=== PATIENT | female | born 1990 | race Two or more races ===

== ENCOUNTER 2021-03-31 23:13 | Emergency (ER) | payer OTHER ==
[~2021-03-31] VITALS: Ht 144.8 cm; Wt 48.0 kg
[2021-04-01 00:25] LABS: ALANINE AMINOTRANSFERASE 32 U/L (12-78); ALBUMIN 3.4 g/dL (3.4-5.0); ANION GAP 8 mmol/L (5-15); CALCIUM 8.8 mg/dL (8.5-10.1); CHLORIDE 106 mmol/L (98-107); CREATININE 0.54 mg/dL (0.55-1.02)
--- NOTE | 2021-04-01 00:26 | NUR ---
PT AMBULATORY TO THE BR FOR A URINE SAMPLE
[2021-04-01 00:30] LABS: BASOPHILS % (AUTO) 0 % (0-1); EOSINOPHILS % (AUTO) 1 % (1-7); LYMPHOCYTES % (AUTO) 21 % (22-44); MEAN CORPUSCULAR HGB CONC 34.4 g/dL (32.4-35.8); MEAN PLATELET VOLUME 7.6 fL (7.4-10.4); MONOCYTES % (AUTO) 6 % (2-9); NEUTROPHILS % (AUTO) 72 % (42-75); PLATELET COUNT 262 x10^3/uL (130-400); RED BLOOD COUNT 4.36 x10^6/uL (3.82-5.3)
[2021-04-01 00:34] VITALS: BP 111/44
[2021-04-01 00:42] LABS: ALKALINE PHOSPHATASE 45 U/L (45-117); BILIRUBIN,TOTAL 0.4 mg/dL (0.2-1.0); TOTAL PROTEIN 7.6 g/dL (6.4-8.2)
[2021-04-01 00:46] LABS: MICROSCOPIC INDICATED
[2021-04-01] MEDS ORDERED: metroNIDAZOLE 500 MG TABLET PO ONE (01:30)
--- NOTE | 2021-04-01 01:30 | NUR ---
dc HOME WITH INSTRUCT, PT VERBALIZES UNDERSTANDING. TO RETURN TO ER IF WORSE OR CONCERNS.
== END 2021-04-01 01:37 | disposition home or self-care (01) ==
LOC: ED 04-01 01:00
DX: O20.0 Threatened abortion (principal); Z3A.01 Less than 8 weeks gestation of pregnancy
CPT/HCPCS: 36415; 76815; 80053; 81001; 84702; 85025; 86901; 87086; 99284